=== PATIENT | female | born 2000 | race Caucasian/White ===

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

== ENCOUNTER 2022-04-01 13:15 | Emergency (ER) | payer OTHER, SELFPAY ==
[2022-04-01 13:36] VITALS: BP 130/77; PULSE 96; RESP 16; TEMP 36.6; O2SAT 97; BMI 46.6
--- NOTE | 2022-04-01 13:48 | HMH.EDUTC ---
[facility] [place] Clinical Impression: Encounter for laboratory testing for COVID-19 virus Disposition: Home, Self-Care Condition on Discharge: Good Instructions: DI for COVID-19 (Suspected or Confirmed ), Preventing the Spread of Coronavirus Discharge Instructions Additional Instructions: *Monitor Temp, Over the counter Motrin or Tylenol as directed/as needed Tylenol every 4 hours and Motrin every 6 hours (as long as your family doctor has told you that you can take it) for fever or pain. and straight to ER if unable to lower temp less than 101.0 after medication given *Warm salt water gargles may help to soothe the throat *Throat Lozenges *Warm fluids like tea with honey may help to soothe the throat *Sleep elevated *Humidifier/Vaporizer Follow up IMMEDIATELY for new or worsening symptoms or no Noticeable improvement over the next 48-72 hours. 911 for difficulty breathing or swallowing You were tested for today for COVID19 your test result should be back in the next 24-48 hours, you may check your results on the [facility] [employer] [facility] for your results Make sure to take your Vitamins Vit. C Vit D and Zinc if you can take them Referrals: Humberto Levy MD [Primary Care Provider] - As needed Forms: Work/School Release Time of Disposition: 13:57 Medical Decision Making - Salomon Inquiry Pt receiving controlled substance: No Salomon was queried for this patient: No Vital Signs: 04/01/22 13:36 Temperature 97.9 F Temperature Source Oral Pulse Rate [Left] 96 H Respiratory Rate 16 Blood Pressure [Right Arm] 130/77 Blood Pressure Mean [Right Arm] 94 02 Sat by Pulse Oximetry 97 Orders (Tests/Meds): ORDERS Category Date Time Status Covid-19 Nasal PCR ([facility]) Routine Lab 04/01/22 13:26 Received [facility] [place]PI - General Stated complaint: covid test Time Seen by Provider: 04/01/22 13:48 Description of Symptoms (Recalled from Triage Doc. by RN): patient comes in for covid test. patient was exposed by sister. patient symptoms include cough, fever, chills HEENT Symptoms (Recalled from RN notes): Yes Resp Symptoms (Recalled from RN notes): Yes Skin Symptoms (Recalled from RN notes): No MS Symptoms (Recalled from RN notes): No Functional Status (Recalled from RN notes): n/a - History of Present Illness Provider Complaint: Patient states that she was recently around her sister that tested positive for COVID States that now she is having symptoms States that she has been having fever, chills, and bodyaches States that this morning she started having N/V States that she had a Rapid test done and it was negative but they recommended that she come get a PCR test done - Related Data Home Medications Medication Instructions Recorded Confirmed montelukast 10 mg tablet 10 mg PO QHS 11/24/17 04/01/22 PARoxetine HCl [Paxil] 40 mg PO DAILY 06/01/19 04/01/22 hydrOXYzine HCL [Hydroxyzine HCl] 25 mg PO DAILY 04/01/22 04/01/22 Allergies Allergy/AdvReac Type Severity Reaction Status Date / Time bacitracin Allergy Mild Verified 04/01/22 13:41 [From Neosporin ([id number])] neomycin Allergy Mild Verified 04/01/22 13:41 [From Neosporin ([id number])] polymyxin B Allergy Mild Verified 04/01/22 13:41 [From Neosporin ([id number])] - Worker's Comp Is this a Worker's Comp case?: No [facility] History - Hepatitis A Screen Attestation statement:: This patient has been screened for Hepatitis A risk factors. I have reviewed the patient's past medical history: Yes Medical History: Reports:: Asthma Denies:: Diabetes Mellitus Type 1, Diabetes Mellitus Type 2 Laterality Cases: Bilateral: Tonsillectomy Other Surgeries: Yes: No Previous Surgery - Social History Smoking Status: Never smoker Alcohol Intake: never Occupational Status: other Family Hx:: Cancer, Diabetes, Heart Attack, Stroke, Hypertension ROS Obtained: Yes All systems reviewed & no additional complaints, Yes Syst
[2022-04-01 14:02] VITALS: BP 130/77; PULSE 96; RESP 16; TEMP 36.6
== END 2022-04-01 14:03 | disposition home or self-care (01) ==
PROVIDERS: Emergency Provider Nurse Practitioner; PCP Specialist
DX: U07.1 COVID-19 (principal)
CPT/HCPCS: 99212; C9803; G0463; U0003; U0005

== ENCOUNTER 2022-07-03 17:08 | Emergency (ER) | payer OTHER, SELFPAY ==
--- NOTE | 2022-07-03 18:12 | EXP.UTC ---
Discharge Plan Disposition Patient Disposition: Home, Self-Care Condition: Good Prescriptions Prescriptions: New amoxicillin [amoxicillin] 500 mg tablet 500 mg PO TID 10 Days Qty: 30 0RF [id number]-hoypqanaa-LD [Bromfed DM] 2-30-10 mg/5 mL Syrup 5 ml PO Q6H PRN (Reason: Cough) Qty: 240 0RF prednisone 10 mg tablet 10 mg PO BID 3 Days Qty: 6 0RF No Action paroxetine HCl 10 MG tablet 40 mg PO DAILY hydroxyzine HCl 25 MG tablet 25 mg PO DAILY Referrals Follow up/Referrals: Provider,Referral, MD [Primary Care Provider] - See instructions Activity Restrictions/Add. Instructions Additional Instructions/Restrictions: Drink plenty of fluids. Take tylenol or ibuprofen for pain or fever. Take the medications as directed. Follow up with your regular doctor. GO TO THE ER FOR ANY WORSENING SYMPTOMS Throw your tooth brush away and get a new one. Clinical Impressions Clinical Impression: Strep throat Stand Alone Forms Stand Alone Forms: Work/School Release Instructions Patient Instructions: DI for Strep Throat Discharge ED Provider: [place] Mendosa [facility] General Stated complaint: COVID/FLU/STREP TEST Time Seen by Provider: 07/03/22 18:12 History of Present Illness Provider Complaint: She c/o sore throat for the past 2 days. Related Data Home Medications Medication Instructions Recorded Confirmed montelukast 10 mg tablet 10 mg PO QHS allergies 11/24/17 04/01/22 (Singulair) paroxetine HCl 10 mg tablet 40 mg PO DAILY panic attack 06/01/19 04/01/22 hydroxyzine HCl 25 mg tablet 25 mg PO DAILY Anxiety 04/01/22 04/01/22 Previous Rx's Medication Instructions Recorded amoxicillin 500 mg tablet 500 mg PO TID 10 days #30 tabs 07/03/22 fvjbbiqfzqwrwsw-iuarqarnozxtcyr-LD 5 ml PO Q6H PRN Cough #240 mL 07/03/22 2 mg-30 mg-10 mg/5 mL oral syrup (Bromfed DM) prednisone 10 mg tablet 10 mg PO BID 3 days #6 tabs 07/03/22 Allergies Allergy/AdvReac Type Severity Reaction Status Date / Time bacitracin Allergy Mild Verified 04/01/22 13:41 [From Neosporin ([id number])] neomycin Allergy Mild Verified 04/01/22 13:41 [From Neosporin ([id number])] polymyxin B Allergy Mild Verified 04/01/22 13:41 [From Neosporin ([id number])] [facility] Medical History Anxiety Asthma Depression Social History Smoking Status: Never smoker alcohol intake: never current occupational status: other Travel in the last 8 weeks: None ROS Obtained: Yes All systems reviewed & no additional complaints except as documented Constitutional Constitutional: Reports chills and Reports fever(s) Eyes Eyes: Denies eye discharge ENT Ears, Nose, Mouth, and Throat: Reports as per HPI Cardiovascular Cardiovascular: Denies chest pain Respiratory Respiratory: Denies chest congestion and Reports cough Gastrointestinal Gastrointestingal: Reports nausea; Denies abdominal pain, constipation, cramping, diarrhea or vomiting Musculoskeletal Musculoskeletal: Denies arthralgias Integumentary/Breasts Skin/Breast: Denies rash Neurologic Neurologic: Denies paresthesias Physical Exam General General appearance: alert and in no apparent distress Head Head exam: atraumatic, normocephalic and normal inspection Eye Eye exam: Present normal appearance, PERRL and EOMI ENT ENT exam: Present mucous membranes moist and normal external ear exam Expanded ENT Exam TM/Canal exam: Bilateral TM: erythema and bulging Nose exam: Absent sinus tenderness Mouth exam: Present normal external inspection; Absent drooling Teeth exam: Present normal inspection Throat exam: Present tonsillar erythema, tonsillomegaly and tonsillar exudate Neck Neck exam: Present normal inspection, full ROM and trachea midline; Absent tenderness, meningismus or lymphadenopathy Chest Ch
[2022-07-03 18:15] VITALS: BP 135/76; PULSE 86; RESP 18; TEMP 37.4; O2SAT 98; BMI 48.4
[2022-07-03 18:38] LABS: UTC Influenza A Antigen Negative (Negative); UTC Influenza B Antigen Negative (Negative); UTC Strep Screen (Rapid) Positive (Negative)
[2022-07-03 18:46] VITALS: BP 135/76; PULSE 86; RESP 18; TEMP 37.4; O2SAT 98
== END 2022-07-03 18:49 | disposition home or self-care (01) ==
PROVIDERS: Emergency Provider Nurse Practitioner Family
DX: J02.0 Streptococcal pharyngitis (principal); B95.0 Streptococcus, group A, as the cause of diseases classified elsewhere; R05.9 Cough, unspecified; Z20.822 Contact with and (suspected) exposure to COVID-19; J45.909 Unspecified asthma, uncomplicated; F32.A Depression, unspecified; F41.9 Anxiety disorder, unspecified; Z79.52 Long term (current) use of systemic steroids; Z79.899 Other long term (current) drug therapy; Z88.8 Allergy status to other drugs, medicaments and biological substances
CPT/HCPCS: 87804; 87880; 99213; C9803; G0463; U0003; U0005